=== PATIENT | male | born 1950 | race Caucasian/White ===

== ENCOUNTER 2016-05-29 19:22 | Emergency (ER) | payer MEDICARE, OTHER ==
[~2016-05-29] VITALS: Ht 177.8 cm; Wt 82.4 kg
[~2016-05-29 19:22] MED LIST: ASPI81TA2 PO; FISH1CAP17 PO; OMEP20CA10 PO; POTA99TA24; ROSU20TA PO; [UNRECOGNIZED DRUG - CODE] PO
[2016-05-29 19:25] VITALS: Ht 177.8 cm; Wt 82.4 kg
--- OUTSIDE RECORDS SUMMARY | 2016-05-29 19:28 | XMS REPORT | Continuity of Care Document ---
Author Author [facility] Organization [facility] Address Unknown Phone Unavailable Care Team Providers Care Director [employer] Name Role Phone Ashish IBARRA MD Primary Care Physician [phone] Insurance Providers Payer Name Policy Number Subscriber Name Relationship [employer] [id number] [employer] 17 Self Advance Directives Directive Response Recorded Date/Time Ordered Resuscitation Status Full Code 11/23/13 4:04pm Problems No known problems or medical conditions. Medications Medication Dose Route Sig Days/Qty Instructions Order Date Discontinued Date Status Guaifenesin/P-Ephed Hcl 1 Tab.sr PO NEEDED 06/15/08 05/13/10 Discontinued Lansoprazole 30 Mg PO DAILY 06/15/08 05/13/10 Discontinued Fish Oil/[place]-3 Fatty Acids 1 Cap PO DAILY 05/14/10 Active Lisinopril/Hydrochlorothiazide 1 Tab PO DAILY 90 Qty 12/06/12 Active Omeprazole 20 Mg PO GIVE AT NOON 90 Qty 11/03/13 Active Rosuvastatin Calcium 20 Mg PO BEDTIME 90 Qty 11/03/13 Active Aspirin 1 Tab PO DAILY 11/03/13 Active Potassium Gluconate 11/04/13 Active Social History Social History Problem Response Recorded Date/Time Smoking Status Never smoker 11/23/2013 2:59pm Chewing Tobacco Status No 12/06/2012 12:04pm Hx Substance Use No 11/23/2013 2:59pm Hx Alcohol Use No 11/23/2013 2:59pm Has the pt used tobacco in the last 12 months No 11/23/2013 2:59pm Query Response Start Date Stop Date Smoking Status Never smoker Hospital Discharge Instructions No hospital discharge instructions. Plan of Care No plan of care. Functional Status No functional status results. Allergies, Adverse Reactions, Alerts Allergen Type Severity Reaction Status Last Updated No Known Drug Allergies Allergy Unknown Active 06/14/08 Immunizations Name Given Type Hx Influenza Vaccination Y 11/2012 Historical Hx Pneumococcal Vaccination Y 2009 Historical Hx Influenza Vaccination Y 11/2012 Historical Vital Signs Acute Vital Signs Vital Response Date/Time Temperature (Fahrenheit) 98.0 deg F (96.8 - 99.1) Temperature (Calculated Celsius) 36.74293 degrees C (36.0 - 37.3) Temperature Source Temporal Pulse Rate (adult) 78 bpm (60 - 100) Respiratory Rate 20 breaths/min (10 - 20) O2 Sat by Pulse Oximetry 99 % (90 - 100) Oxygen Delivery Method Room Air Blood Pressure 102/53 mm Hg Blood Pressure Source Automatic Cuff Height 5 ft 10 in Weight 175 lb Body Mass Index 25.0 kg/m^2 Results Test Source Date Result Interp. Ref. Range Comments Anion Gap November 25, 2013 6:20am 11 MEQ/L N 5-15 COMMENT [facility] WILL CALL BUN/Creatinine Ratio November 25, 2013 6:20am 13 RATIO N 6-26 COMMENT [facility] WILL CALL Basophils # (Auto) November 04, 2013 8:54am 0.0 T/MM3 N 0-0.2 COMMENT [facility] [place] WILL CALL Basophils (%) (Auto) November 04, 2013 8:54am 0.5 % N 0-2 COMMENT [facility] WILL CALL Blood Urea Nitrogen November 25, 2013 6:20am 12.0 MG/DL N 9-20 COMMENT [facility] WILL CALL Calcium Level November 25, 2013 6:20am 9.5 MG/DL N 8.4-10.2 COMMENT [facility] WILL CALL Calculated Osmolality November 25, 2013 6:20am 267 MOSM/KG N 261-280 COMMENT [facility] WILL CALL Carbon Dioxide Level November 25, 2013 6:20am 29 MEQ/L N 22-30 COMMENT [facility] WILL CALL Chemistry Specimen Hemolysis November 25, 2013 6:20am < 15 0-25 0-25: No Hemolysis.26-70: Slight Hemolysis - can falsely elevate K and Urine Protein. 71-285: Moderate Hemolysis - can falsely elevate K, Troponin I, CA 19-9, PTH, CSF GLucose, and Urine Protein, and can falsely decrease Phenytoin. 286-999: Gross Hemolysis - can falsely elevate K, Troponin I, CA 19-9, PTH, CSF Glucose, and Urine Protine, and can falsely decrease Phenytoin. Recommend specimen recollection. Chloride Level November 25, 2013 6:20am 99 MEQ/L N 98-107 COMMENT [facility] WILL CALL Creatinine November 25, 2013 6:20am 0.9 MG/DL N 0.8-1.5 COMMENT [facility] WILL CALL EKG June 15, 2008 7:49am Complete - COMMENT TO SCU AT 0730 Eosinophils # (Auto) November 04, 2013 8:54am 0.1 T/MM3 N 0-0.5 COMMENT [facility] WILL CALL Eosinophils (%) (Auto) November 04, 2013 8:54am 1.8 % N 0-4 COMMENT [facility] WILL CALL Glomerular Filtration Rate Calc November 25, 2013 6:20am 85 - COMMENT [facility] WILL CALL Glucose Level November 25, 2013 6:20am 87 MG/DL N 75-110 COMMENT [facility] WILL CALL Hematocrit November 04, 2013 8:54am 43.8 % N 41-53 COMMENT [facility] WILL CALL Hemoglobin November 04, 2013 8:54am 15.4 GM/DL N 13.5-17.5 COMMENT [facility] WILL CALL Icterus Index November 25, 2013 6:20am < 2 0-7 COMMENT [facility] WILL CALL Immature Granulocyte # (Auto) November 04, 2013 8:54am 0.00 T/MM3 N 0.00-0.03 COMMENT [facility] WILL CALL Immature Granulocyte % (Auto) November 04, 2013 8:54am 0.0 % N 0.0-0.5 COMMENT [facility] WILL CALL Lymphocytes # (Auto) November 04, 2013 8:54am 1.1 T/MM3 N 1-4.8 COMMENT [facility] WILL CALL Lymphocytes (%) (Auto) November 04, 2013 8:54am 27.5 % N 23-45 COMMENT [facility] WILL CALL Mean Corpuscular Hemoglobin November 04, 2013 8:54am 31.4 UUG N 26-34 COMMENT [facility] WILL CALL Mean Corpuscular Hemoglobin Concent November 04, 2013 8:54am 35.2 GM/DL N 31-37 COMMENT [facility] WILL CALL Mean Corpuscular Volume November 04, 2013 8:54am 89.4 UM3 N 80-100 COMMENT [facility] WILL CALL Mean Platelet Volume November 04, 2013 8:54am 10.6 UM3 N 9.4-12.4 COMMENT [facility] WILL CALL Monocytes # (Auto) November 04, 2013 8:54am 0.4 T/MM3 N 0-0.8 COMMENT [facility] WILL CALL Monocytes (%) (Auto) November 04, 2013 8:54am 9.7 % H 0-9.0 COMMENT [facility] WILL CALL Neutrophils # (Auto) November 04, 2013 8:54am 2.4 T/MM3 N 1.8-7.7 COMMENT [facility] WILL CALL Neutrophils (%) (Auto) November 04, 2013 8:54am 60.5 % N 33-66 COMMENT [facility] WILL CALL Platelet Count November 04, 2013 8:54am 209 T/MM3 N 130-400 COMMENT [facility] WILL CALL Potassium Level November 25, 2013 6:20am 3.2 MEQ/L L 3.6-5 COMMENT [facility] WILL CALL RDW Standard Deviation November 04, 2013 8:54am 44.0 FL N 36.9-50.2 COMMENT [facility] WILL CALL Red Blood Count November 04, 2013 8:54am 4.90 M/MM3 N 4.50-5.90 COMMENT [facility] WILL CALL Sodium Level November 25, 2013 6:20am 139 MEQ/L N 134-144 COMMENT [facility] WILL CALL Turbidity November 25, 2013 6:20am < 20 0-20 COMMENT [facility] WILL CALL White Blood Count November 04, 2013 8:54am 3.9 T/MM3 L 4.5-11.0 COMMENT [facility] WILL CALL Procedures Procedure Status Date Provider(s) PRP I/KALA INIT REDUC >5 YR completed 11/04/13 BLANE HUMMEL MD Inguinal hernia repair completed 11/25/13 BLANE HUMMEL MD
--- OUTSIDE RECORDS SUMMARY | 2016-05-29 19:28 | XMS REPORT | Continuity of Care Document ---
Author Author [facility] Organization [facility] Address Unknown Phone Unavailable Care Team Providers Care Concrete Mixing Truck Driver Name Role Phone Ashish IBARRA MD Primary Care Physician [phone] Insurance Providers Payer Name Policy Number Subscriber Name Relationship [employer] [id number] [employer] 18 Self Advance Directives Directive Response Recorded Date/Time Ordered Resuscitation Status Full Code 11/03/13 11:37am Resuscitation Documents on File No 11/03/13 9:52am Problems No known problems or medical conditions. Medications Medication Dose Route Sig Days/Qty Instructions Order Date Discontinued Date Status Guaifenesin/P-Ephed Hcl 1 Tab.sr PO NEEDED 06/15/08 05/13/10 Discontinued Lansoprazole 30 Mg PO DAILY 06/15/08 05/13/10 Discontinued Fish Oil/[place]-3 Fatty Acids 1 Cap PO DAILY 05/14/10 Active Lisinopril/Hydrochlorothiazide 1 Tab PO DAILY 90 Qty 12/06/12 Active Omeprazole 20 Mg PO GIVE AT NOON 90 Qty 11/03/13 Active Rosuvastatin Calcium 20 Mg PO BEDTIME 90 Qty 11/03/13 Active Aspirin 1 Tab PO DAILY 11/03/13 Active Potassium Gluconate 11/04/13 Active Social History Social History Problem Response Recorded Date/Time Smoking Status Never smoker 11/03/2013 9:46am Chewing Tobacco Status No 12/06/2012 12:04pm Hx Substance Use No 11/03/2013 9:46am Hx Alcohol Use No 11/03/2013 9:46am Has the pt used tobacco in the last 12 months No 11/03/2013 9:46am Query Response Start Date Stop Date Smoking [...] Vital Signs Vital Response Date/Time Temperature (Fahrenheit) 96.8 deg F (96.8 - 99.1) Temperature (Calculated Celsius) 36.18112 degrees C (36.0 - 37.3) Temperature Source Temporal Pulse Rate (adult) 62 bpm (60 - 100) Respiratory Rate 16 breaths/min (10 - 20) O2 Sat by Pulse Oximetry 100 % (90 - 100) Oxygen Delivery Method Room Air Blood Pressure 108/67 mm Hg Blood Pressure Source Automatic Cuff Height 5 ft 10.5 in Weight 175 lb Body Mass Index 24.0 kg/m^2 Results Test Source Date Result Interp. Ref. Range Comments Anion Gap November 04, 2013 8:54am 11 MEQ/L N 5-15 BUN/Creatinine Ratio November 04, 2013 8:54am 12 RATIO N 6-26 Basophils # (Auto) November 04, 2013 8:54am 0.0 T/MM3 N 0-0.2 COMMENT N[facility] WILL CALL Basophils (%) (Auto) November 04, 2013 8:54am 0.5 % N 0-2 COMMENT N[facility] WILL CALL Blood Urea Nitrogen November 04, 2013 8:54am 11.0 MG/DL N 9-20 Calcium Level November 04, 2013 8:54am 9.5 MG/DL N 8.4-10.2 Calculated Osmolality November 04, 2013 8:54am 270 MOSM/KG N 261-280 Carbon Dioxide Level November 04, 2013 8:54am 31 MEQ/L H 22-30 Chemistry Specimen Hemolysis November 04, 2013 8:54am < 15 0-25 0-25 : No Hemolysis.26-70: Slight Hemolysis - can falsely [...] Phenytoin. Recommend specimen recollection. Chloride Level November 04, 2013 8:54am 99 MEQ/L N 98-107 Creatinine November 04, 2013 8:54am 0.9 MG/DL N 0.8-1.5 EKG June 15, 2008 7:49am Complete - COMMENT TO SCU AT 0730 Eosinophils # (Auto) November 04, 2013 8:54am 0.1 T/MM3 N 0-0.5 COMMENT N[facility] WILL CALL Eosinophils (%) (Auto) November 04, 2013 8:54am 1.8 % N 0-4 COMMENT NSC WILL CALL Glomerular Filtration Rate Calc November 04, 2013 8:54am 85 - Glucose Level November 04, 2013 8:54am 95 MG/DL N 75-110 Hematocrit November 04, 2013 8:54am 43.8 % N 41-53 COMMENT N[facility] WILL CALL Hemoglobin November 04, 2013 8:54am 15.4 GM/DL N 13.5-17.5 COMMENT [facility] WILL CALL Icterus Index November 04, 2013 8:54am < 2 0-7 Immature Granulocyte # (Auto) November 04, 2013 [...] COMMENT [facility] WILL CALL Potassium Level November 04, 2013 8:54am 3.7 MEQ/L N 3.6-5 RDW Standard Deviation November 04, 2013 8:54am 44.0 FL N 36.9-50.2 COMMENT N[facility] WILL CALL Red Blood Count November 04, 2013 8:54am 4.90 M/MM3 N 4.50-5.90 COMMENT [facility] WILL CALL Sodium Level November 04, 2013 8:54am 141 MEQ/L N 134-144 Turbidity November 04, 2013 8:54am < 20 0-20 White Blood Count November 04, 2013 8:54am 3.9 T/MM3 L 4.5-11.0 COMMENT N[facility] WILL CALL Procedures Procedure Status Date Provider(s) Inguinal hernia repair completed 11/04/13 BLANE HUMMEL MD
--- NOTE | 2016-05-29 19:31 | NUR ---
PROVIDER DR BRYSON IN ROOM.
[2016-05-29] MEDS ORDERED: PRAV80TA23 PO (19:38)
[2016-05-29] MEDS ORDERED: OMEG300C PO (19:38)
--- OUTSIDE RECORDS SUMMARY | 2016-05-29 19:44 | XMS REPORT | Continuity of Care Document ---
Author Author [facility] Organization [facility] Address Unknown Phone Unavailable Care Team Providers Care Incident Manager Name Role Phone Ashish IBARRA MD Primary Care Physician [phone] Insurance Providers Payer Name Policy Number Subscriber Name Relationship [employer] [id number] [employer] 18 Self Advance Directives Directive Response Recorded Date/Time Ordered Resuscitation Status Full Code 11/03/13 11:37am Resuscitation Documents on File No 11/03/13 9:52am Problems No known problems or medical conditions. Medications Medication Dose Route Sig Days/Qty Instructions Order Date Discontinued Date Status Guaifenesin/P-Ephed Hcl 1 Tab.sr PO NEEDED 06/15/08 05/13/10 Discontinued Lansoprazole 30 Mg PO DAILY 06/15/08 05/13/10 Discontinued Fish Oil/[place]-3 Fatty Acids 1 Cap PO DAILY 05/14/10 [...] F (96.8 - 99.1) Temperature (Calculated Celsius) 36.80146 degrees C (36.0 - 37.3) Temperature Source [...]
--- OUTSIDE RECORDS SUMMARY | 2016-05-29 19:44 | XMS REPORT | Continuity of Care Document ---
Author Author [facility] Organization [facility] Address Unknown Phone Unavailable Care Team Providers Care [employer] Unified Communications Engineer Name Role Phone Ashish IBARRA MD Primary Care Physician [phone] Insurance Providers Payer Name Policy Number Subscriber Name Relationship [employer] [id number] [employer] 18 Self Advance Directives Directive Response Recorded Date/Time Ordered Resuscitation Status Full Code 11/23/13 4:04pm Problems No known problems or medical conditions. Medications Medication Dose Route Sig Days/Qty Instructions Order Date Discontinued Date Status Guaifenesin/P-Ephed Hcl 1 Tab.sr PO NEEDED 06/15/08 05/13/10 Discontinued Lansoprazole 30 Mg PO DAILY 06/15/08 05/13/10 Discontinued Fish Oil/[place]-3 Fatty Acids 1 Cap PO DAILY 05/14/10 [...] F (96.8 - 99.1) Temperature (Calculated Celsius) 36.02158 degrees C (36.0 - 37.3) Temperature Source [...] 2013 8:54am 0.0 T/MM3 N 0-0.2 COMMENT [facility] WILL CALL Basophils (%) (Auto) November 04, [...]
[2016-05-29] MEDS ORDERED: CEFTRIAXONE 1 GRAM INJECTION IM ONE (19:45)
[2016-05-29] MEDS ORDERED: NEOMYCIN/POLYM/BACITR OINT PACKET TOP ONE (19:50)
[2016-05-29] MEDS ORDERED: LIDOCAINE 1% (10mg/ml) 2ml SDV ID ONE (19:50)
--- NOTE | 2016-05-29 19:55 | NUR ---
XRAY XRAY IN ROOM W/ PT PORTABLE.
--- NOTE | 2016-05-29 20:29 | ERPDOC ---
Departure Disposition Decision Date: May 29, 2016 Disposition Decision Time: 20:28 Disposition: 01 DISCHARGED HOME, SELF-CARE Impression Impression Impression: Primary Impression: Laceration of finger Additional Impression: Open fracture of finger Severity: Moderate Condition: Improved Seen By: Physician only Referrals: Ashish IBARRA MD (Family) Patient Instructions: Acute Wound Care (ED) Problems/Meds/Labs Reviewed?: Yes Medications reviewed and manag: Yes Additional Instructions: You were given Rocephin 1 g IM in the ED. Keflex 500 mg, 2 tablets twice daily for 10 days. Keep wound clean and dry, use bacitracin to cover. Please follow up with her primary care physician to make sure this wound is healing appropriately and the bone is not becoming infected. Follow up care ordered?: Yes Scripts Cephalexin (Keflex) 500 Mg Capsule 2 CAP PO BID, #40 CAP Prov: SEGUNDO DENIS MD 05/29/16 HPI - Skin General General Chief Complaint: Laceration Stated Complaint: FINGER LACERATION Time Seen by Provider: 19:31 HPI - Skin General Initial Comments 65-year-old gentleman using a table saw and cut his left index finger with a carbide blade. No previous injuries to the hand, he was pushing a piece of wood through and the saw kicked back, dragging his finger through the blade. The cut is across the dorsum of the finger involving fingernail. He has no other injuries no other complaints, last tetanus shot was in October of last year during a routine health visit. No allergies to medications. Allergies: Coded Allergies: No Known Drug Allergies (Verified Allergy, Unknown, 06/14/08) Past History Vaccines Hx Influenza Vaccination: Yes (11/2012) Hx Pneumococcal Vaccination: Yes (2009) Social History Smoking Status: Never smoker Substance Use Type: does not use Record Review Pertinent history updated: Yes Review of Systems Musculoskeletal General: see HPI Integumentary Skin: see HPI All other Systems All Other Systems: Reviewed and Negative Physical Exam General General Nourishment: well nourished, well developed, appears stated age Distress Description Obvious pain from laceration on finger. Vitals and Pain First Documented Vital Signs Date Time Temp Pulse Resp B/P Pulse Ox O2 Delivery O2 Flow Rate FiO2 05/29/16 19:25 97.8 88 16 133/77 96 Room Air Weight: Kilograms: 82.400 Height (feet): Height (inches): 70.00 Triage Pain Scale: Normal Exams: Head: Normocephalic w/o trauma Chest/Resp: Clear all rodriguez, with good airflow, and symmetry bilaterally CV: Regular rate and rhythm, without murmur or gallop, Pulses 2+ all extremities, capillary refill, <2 seconds all ext., no pedal edema noted Neurologic: Patient is alert, and oriented, cranial nerves, motor/sensory/ cerebellar, exams w/o gross deficits, to observation Psychiatric: Patient exhibits, appropriate attention, emotion and affect Integumentary (brief) Comments Left hand index finger has laceration on dorsum which takes off one half of the fingernail, it is as if the finger was vertical when it went through the blade and instead of jumping off the tip of the finger, it shaved the dorsum. Bone is exposed. Differential Diagnoses Considering: Laceration, Other (partial avulsion) Progress Results/Orders Orders Procedure Category Date Status Time Hand Left 3 View RAD 05/29/16 Taken Ceftriaxone (Rocephin) PHA 05/29/16 Complete 19:45 Oxycodone/Apap 5/325 PHA 05/29/16 Complete (Prepack) (Percocet 20:45 Medications Current ED Medications Ceftriaxone Sodium (Rocephin) 1 g O ONCE IM Last administered on 05/29/16t 19: 45; Start 05/29/16 at 19:45; Stop 05/29/16 at 19:47; Status DC Oxycodone/ Acetaminophen (Percocet 5 (Prepack)) 1 pack O ONCE SENT HOME ; Start 05/29/16 at 20:45; Stop 05/29/16 at 20:46; Status DC Progress Progress X-ray obtained, bone involved and exposed. Rocephin 1 g given IM, patient started on Keflex 500 mg tabs, 2 tabs twice daily to prevent osteomyelitis due to exposed bone. Bandage applied, Neosporin with nonstick and Coban. Patient is to follow-up with primary care physician. SEGUNDO DENIS MD May 29, 2016 20:29
[2016-05-29] MEDS ORDERED: CEPH-583 PO (20:31)
[2016-05-29] MEDS ORDERED: OXYCODONE/APAP 5/325 (Prepack) SENT HOME ONE (20:45)
[2016-05-29 20:51] VITALS: BP 103/68; PULSE 68; RESP 20; TEMP 98; O2SAT 97
--- NOTE | 2016-05-29 20:51 | NUR ---
DISCHARGE PT GIVEN [id number] FOR WOUND CARE L POINTER FINGER W/ RX FOR KEFLEX. PT VERBALIZED UNDERSTANDING AND SIGNED FORM. PT LEFT ER ALERT AMBUALTORY W/O ASSIST, VS CHARTED IN NO ACUTE DISTRESS.
[2016-05-29] MEDS ORDERED: HYDROCODONE/APAP 5/325 (PrePack) SENT HOME ONE (21:45)
--- NOTE | 2016-05-30 08:41 | DI ---
Indication: ITS.REASON: table saw injury to finger PROCEDURE: HAND LEFT 3 VIEW: Encounter: Initial Comparison: None Findings: There is no acute fracture, dislocation or malalignment identified. Soft tissue laceration involving the tip of the index finger. Impression: No acute osseous abnormality. .
== END 2016-05-29 20:51 | disposition home or self-care (01) ==
LOC: ED 19:22
DX: S62.601B Fracture of unspecified phalanx of left index finger, initial encounter for open fracture (principal); W29.8XXA Contact with other powered hand tools and household machinery, initial encounter; Y93.89 Activity, other specified; Y92.009 Unspecified place in unspecified non-institutional (private) residence as the place of occurrence of the external cause; Y99.8 Other external cause status
CPT/HCPCS: 29130; 73130; 96372; 99283; A9270; J0696